=== PATIENT | female | born 1995 | race Caucasian/White ===

== ENCOUNTER 2018-04-10 00:29 | Emergency (ER) | payer OTHER ==
[~2018-04-10] VITALS: Ht 162.6 cm; Wt 52.2 kg
[~2018-04-10 00:29] MED LIST: BENTYL20 MG PO; CARAFATE 1 GM TA1 GM PO
[2018-04-10 02:08] LABS: URINE BILIRUBIN NEGATIVE (Negative); URINE BLOOD NEGATIVE (Negative); URINE CLARITY CLEAR; URINE COLOR STRAW; URINE GLUCOSE-RANDOM NEGATIVE (Negative); URINE KETONES NEGATIVE (Negative); URINE LEUKOCYTES-REFLEX NEGATIVE (Negative); URINE NITRITE-REFLEX NEGATIVE (Negative); URINE PROTEIN NEGATIVE (Negative); URINE UROBILINOGEN 0.2 E.U./dl (0.2-1.0)
[2018-04-10 02:15] LABS: AMP/METHAMP Negative (Negative); BARBITURATES Negative (Negative); BENZODIAZEPINES Negative (Negative); COCAINE Negative (Negative); METHADONE Negative (Negative); OPIATES Negative (Negative); PCP Negative (Negative); THC Negative (Negative)
[2018-04-10 02:16] LABS: ABSOLUTE BASOPHILS 0.1 thou/uL (0.0-0.2); ABSOLUTE LYMPHOCYTES 1.6 thou/uL (0.8-5.3); ABSOLUTE MONOCYTES 0.5 thou/uL (0.0-1.2); ABSOLUTE NEUTROPHILS 9.8 thou/uL (1.6-8.1); BASOPHILS 0.5 %; EOSINOPHILS 0.1 %; HEMATOCRIT 39.6 % (37.0-47.0); HEMOGLOBIN 13.1 gm/dL (12.0-15.0); LYMPHOCYTES 12.9 %; MCH 28.6 pg (26.0-34.0); MCV 86.7 fL (80.0-100.0); MONOCYTES 4.2 %; MPV 10.2 fl. (7.2-11.1); NUCLEATED RBCS 0 /100WBC; PLATELET COUNT* 300 thou/uL (150-400); POLYS 82.3 %; RBC 4.57 mil/uL (4.20-5.00); RDW-CV 12.4 % (10.5-14.5)
[2018-04-10 02:19] LABS: CALCIUM 9.4 mg/dL (8.5-10.1); CREATININE 0.8 mg/dL (0.6-1.3); POTASSIUM 3.4 mmol/L (3.5-5.1)
[2018-04-10 02:29] LABS: ALBUMIN 4.6 g/dL (3.4-5.0); TOTAL BILIRUBIN 0.4 mg/dL (<0.1-1.0); TOTAL PROTEIN 8.4 g/dL (6.4-8.2)
[2018-04-10 03:50] VITALS: BP 97/57
== END 2018-04-10 04:00 | disposition home or self-care (01) ==
LOC: M.ERS 00:29
PROVIDERS: Personal Emergency Response Attendant
DX: G24.09 Other drug induced dystonia (principal)

== ENCOUNTER → 2018-09-01 | Emergency (ER) | payer OTHER ==
[~2018-09-01] VITALS: Ht 165.1 cm; Wt 54.0 kg
[~2018-09-01] MED LIST changes: +AMOXICILLIN 50500 MG PO; +CLONAZEPAM 1 MG1 M1 PO; +ULTRAM 50MG TAB50 MG PO
[2018-09-01 23:53] VITALS: BP 137/74
== END ==
LOC: M.ERS 23:48
DX: K02.9 Dental caries, unspecified (principal)

== ENCOUNTER → 2019-05-03 | Outpatient (CLI) | payer OTHER | LOC: M.MRI 03-17 16:30 | DX: J32.0 Chronic maxillary sinusitis (principal); G89.29 Other chronic pain ==

== ENCOUNTER → 2019-06-29 | Outpatient (CLI) | payer OTHER | LOC: M.PC 06-15 09:00 | DX: M79.18 Myalgia, other site (principal) ==